=== PATIENT | female | born 1980 | race Hispanic/Latino ===

== ENCOUNTER 2021-08-12 17:10 | Emergency (ER) | payer SELFPAY ==
[2021-08-12 17:16] VITALS: BP 137/75; PULSE 79; RESP 18; TEMP 36.9; O2SAT 100
--- NOTE | 2021-08-12 17:24 | PC.NURSE ---
Pt irrigated her eye out with water for approx 10min [employer]
[2021-08-12] MEDS: DACRIOSE EYE IRRIGATION 118 ML BOTTLE (19:10)
[2021-08-12] MEDS: FLUORESCEIN SOD 1 MG/STRIP (19:10)
[2021-08-12] MEDS: TETRACAINE HCL 0.5% OPHTH SOLN 4 ML BTL 1 DROP (19:10)
--- NOTE | 2021-08-12 19:10 | PC.NURSE ---
assumed care of pt. at this time. report from MARK Black
--- NOTE | 2021-08-12 19:44 | PC.NURSE ---
Pt. eye being irrigated vorb erp NS
[2021-08-12 20:00] VITALS: BP 123/74; PULSE 88; RESP 14; O2SAT 97
--- NOTE | 2021-08-12 20:48 | ED.GENADULT ---
HPI - General Adult General Chief complaint: Eye Problems <Bruno Chinchilla PA-C - Last Filed: 08/12/21 21:53> Stated complaint: chemical splash <Bruno Chinchilla PA-C - Last Filed: 08/12/21 21:53> Time Seen by Provider: 08/12/21 17:39 <Bruno Chinchilla PA-C - Last Filed: 08/12/21 21:53> Source: patient <Bruno Chinchilla PA-C - Last Filed: 08/12/21 21:53> Mode of arrival: ambulatory <KATRIN Coppola Last Filed: 08/12/21 21:53> Limitations: language barrier (Translation line used-Frisian speaking) <KATRIN Coppola Last Filed: 08/12/21 21:53> History of Present Illness HPI narrative: Patient presents with chief complaint of pain in injury to the right while using a calcium and lyme flask cleaner powder. Patient states that she flushed her eye with water as well as breastmilk. She reports burning and pain to the eye. She reports some blurry vision and tenderness to her eyelids. Patient denies prior eye injury. Patient denies any chronic medical diseases. <Bruno Chinchilla PA-C - Last Filed: 08/12/21 21:53> Related Data Allergies/adverse reactions: Allergies Allergy/AdvReac Type Severity Reaction Status Date / Time No Known Allergies Allergy Verified 08/12/21 19:11 <Bruno Chinchilla PA-C - Last Filed: 08/12/21 21:53> Review of Systems Review of Systems: CONSTITUTIONAL: Denies fever, chills, or sweats. EYES: Reports visual changes, redness, or discharge. ENT: Denies rhinorrhea, congestion, sore throat, or otalgia. CARDIOVASCULAR: Denies chest pain, palpitations, or edema. RESPIRATORY: Denies cough or dyspnea. GASTROINTESTINAL: Denies abdominal pain, nausea, vomiting, or diarrhea. GENITOURINARY: Denies dysuria or hematuria. SKIN: Denies rash or itching. MUSCULOSKELETAL: Denies back pain, joint pain, or myalgia. NEUROLOGIC: Denies headache, numbness, dizziness, or weakness. PSYCHIATRIC: Denies anxiety or depression. <Bruno Chinchilla PA-C - Last Filed: 08/12/21 21:53> Exam Narrative: GENERAL: Well-appearing, well-nourished, and in no acute distress. HEAD: Normocephalic, atraumatic. EYES: Right lower eyelids erythematous with signs of burn. There is some mucus-like discharge and excessive tearing from the right. There is erythema to the sclera. Fluorescein stain notices corneal abrasion-like burn to the lower 50% patient eye. Horizontal line from 3 to 9oclock distally. ENT: Nares clear, no rhinorrhea or epistaxis. Mucous membranes moist. Oropharynx without tonsillar hypertrophy exudate or other lesions. Bilateral TMs pearly gomez nonbulging CHEST: Clear to auscultation. No respiratory distress. No wheezes rales or rhonchi HEART: Regular rate and rhythm. No murmur heard. EXTREMITIES: Normal range of motion. No edema. SKIN: Warm, dry, no rash. NEURO: No focal deficits. Alert and oriented x3. PSYCH: Normal mood and affect. <Bruno Chinchilla PA-C - Last Filed: 08/12/21 21:53> Course Vital Signs Vital signs: Vital Signs Temperature 36.9 C 08/12/21 17:16 Pulse Rate 79 08/12/21 17:16 Respiratory Rate 18 08/12/21 17:16 Blood Pressure 137/75 08/12/21 17:16 Pulse Oximetry 100 08/12/21 17:16 Temperature 36.9 C 08/12/21 17:16 Pulse Rate 70 08/12/21 22:03 Respiratory Rate 15 08/12/21 22:03 Blood Pressure 124/80 08/12/21 22:03 Pulse Oximetry 98 08/12/21 22:03 <Bruno Chinchilla PA-C - Last Filed: 08/12/21 21:53> Medical Decision Making MDM Narrative Medical decision making narrative: Consult with [facility] tooth cutter pinion Tasha Gonzales at [facility]. She wants the patient to be started on moxifloxacin topical eye drop q3hrs, tobramycin ointment 3x/day. [phone] Dr. Kala Muñoz call tomorrow to schedule follow up in her office. The patient's eye was flushed with 1 L a Camilo splint and tooth cutter pinion also wanted the patient to have her eye upper and lower eyelids were instructed with a bottle of strain. Please inform her that the p
[2021-08-12] MEDS: HYDROcodone/acetaminophen (*CRX) 5-325 MG TABLET 1 TAB PO (20:55)
[2021-08-12 21:00] VITALS: BP 132/74; PULSE 74; RESP 19; O2SAT 99
[2021-08-12 22:03] VITALS: BP 124/80; PULSE 70; RESP 15; O2SAT 98
[2021-08-12] MEDS: KETOROLAC (*BKC) 60 MG/2 ML VIAL 30 MG IM (22:03)
== END 2021-08-12 22:03 | disposition home or self-care (01) ==
PROVIDERS: Emergency Provider Emergency Medicine; PCP Registered Nurse
DX: T65.891A Toxic effect of other specified substances, accidental (unintentional), initial encounter (principal); T26.51XA Corrosion of right eyelid and periocular area, initial encounter; T26.61XA Corrosion of cornea and conjunctival sac, right eye, initial encounter
CPT/HCPCS: 96372; 99283; A9270; J1885; J7030